=== PATIENT | female | born 1950 | race Caucasian/White ===

== ENCOUNTER 2021-09-01 16:07 | Inpatient (IN) | payer MEDICARE, OTHER ==
[~2021-09-01] VITALS: Ht 175.3 cm; Wt 46.0 kg
[~2021-09-01 16:07] MED LIST: ACETAMINOPHEN325 MG PO; ARICEPT 5MG TABL5 MG PO; ASPIRIN CHEWABL81 MG PO; CARBIDOPA-LEVO1 EAC1 PO; CELEXA20 MG PO; INDERAL20 MG PO; LACTINEX1 EACH PO; LEVAQUIN750 MG PO; NAMENDA 10MG TA10 MG PO; POLY-IRON150 MG PO; QUETIAPINE FUMA25 MG PO; WELLBUTRIN XL150 MG PO; XARELTO10 MG PO
[2021-09-01 16:28] LABS: BASOPHIL 0.1 % (0-2); EOSINOPHIL 0 % (0-7); HCT 48.3 % (37.0-47.0); HGB 16.2 g/dl (12.5-16.0); LYMPHOCYTE 10.8 % (15-48); MCH 31.9 pg (25.0-31.0); MCHC 33.5 g/dL (32.0-36.0); MCV 95.1 fL (78.0-100.0); MONOCYTE 9.3 % (0-12); MPV 9.9 fL (6.0-9.5); NEUTROPHIL 79.4 % (41-80); NRBC 0; PLT 326 K/uL (150-400); RBC 5.08 M/uL (4.20-5.40); RDW 12.1 % (11.5-14.0); WBC 16.2 K/uL (4.0-10.5)
[2021-09-01 16:48] LABS: ALBUMIN 3.9 g/dL (3.4-5.0); BILIRUBIN - TOTAL 0.7 mg/dL (0.2-1.0); BUN/CREAT RATIO (CALC) 60.4 RATIO; CREATININE 0.53 mg/dL (0.51-0.95); GLOBULIN (CALCULATION) 3.6 g/dL; POTASSIUM 3.3 mmol/L (3.5-5.1); TOTAL PROTEIN 7.5 g/dL (6.4-8.2)
[2021-09-01 16:54] LABS: LACTIC ACID 1.4 mmol/L (0.4-1.9)
[2021-09-01 17:46] LABS: BILIRUBIN 1+ mg/dL (NEGATIVE); BLOOD 2+ Ery/uL (NEGATIVE); CLARITY CLEAR (CLEAR); COLOR YELLOW (YELLOW); GLUCOSE (U) NORMAL (NORMAL); LEUKOCYTES NEGATIVE Leu/uL (NEGATIVE); NITRITE NEGATIVE (NEGATIVE); PROTEIN 2+ mg/dL (NEGATIVE); SPECIFIC GRAVITY >=1.030 (1.001-1.030); UROBILINOGEN 0.2 mg/dL (0.2-1.0)
[2021-09-01 17:48] LABS: INR 0.97 (0.9-1.2); PROTHROMBIN TIME 12.3 SECONDS (11.8-13.4)
[2021-09-01 17:54] LABS: AMORPHOUS URATES CRYSTALS TRACE; BACTERIA 2+; MUCOUS TRACE
[2021-09-02 05:42] LABS: HCT 44.1 % (37.0-47.0); HGB 14.7 g/dl (12.5-16.0); MCH 31.7 pg (25.0-31.0); MCHC 33.3 g/dL (32.0-36.0); MCV 95.2 fL (78.0-100.0); MPV 10.2 fL (6.0-9.5); RBC 4.63 M/uL (4.20-5.40); RDW 12.4 % (11.5-14.0); WBC 13.5 K/uL (4.0-10.5)
[2021-09-02 06:14] LABS: ALBUMIN 3.1 g/dL (3.4-5.0); BILIRUBIN - TOTAL 0.9 mg/dL (0.2-1.0); BUN/CREAT RATIO (CALC) 71.1 RATIO; CREATININE 0.45 mg/dL (0.51-0.95); GLOBULIN (CALCULATION) 3.6 g/dL; POTASSIUM 2.9 mmol/L (3.5-5.1); TOTAL PROTEIN 6.7 g/dL (6.4-8.2)
[2021-09-02 06:49] LABS: MAGNESIUM 2.2 mg/dL (1.8-2.4); PHOSPHORUS 2.9 mg/dL (2.6-4.7)
--- NOTE | 2021-09-02 10:25 | NUR ---
09/02/21 Ms. Kramer is dx with Alzheimer's and Parkinson's disease. She lives in her own home with 24 hour caregivers 5 days. Her 2 children take tunes staying on the weekend. She has a hospital bed, oximizer, 3in1, ans wc. Ms. Kramer is non-ambulatory and speaks minimally. She was bein fed, however, she stopped eating over the weekend. - Family has requested Hospice services. - A referral was made to [facility]. She will visit with the family today. - A report was given to Dr. Hoff and Cortney MS RN.
== END 2021-09-02 16:33 | disposition hospice, home (50) | DRG 871 ==
LOC: FER 16:07 → FMS 18:05
PROVIDERS: Emergency Medicine; Nurse Practitioner; ADMIT Internal Medicine
DX: A41.9 Sepsis, unspecified organism (principal); G93.41 Metabolic encephalopathy; N30.01 Acute cystitis with hematuria; Z20.822 Contact with and (suspected) exposure to COVID-19; Z66 Do not resuscitate; Z51.5 Encounter for palliative care; R65.20 Severe sepsis without septic shock; G30.9 Alzheimer's disease, unspecified; F02.80 Dementia in other diseases classified elsewhere, unspecified severity, without behavioral disturbance, psychotic disturbance, mood disturbance, and anxiety; I10 Essential (primary) hypertension; G20 Parkinson's disease; Z96.651 Presence of right artificial knee joint; Z90.89 Acquired absence of other organs; Z98.890 Other specified postprocedural states
CPT/HCPCS: 36415; 70450; 71045; 80053; 81001; 83605; 83735; 84100; 84484; 85025; 85610; 87040; 87088; 93005; J1650; J2060; J2543; J3370; J3475; J3480; J7030; J7050; U0002